=== PATIENT | male | born 1955 | race Two or more races ===

== ENCOUNTER 2018-05-03 07:19 | Day surgery (SDC) | payer OTHER ==
[~2018-05-03] VITALS: Ht 167.6 cm; Wt 79.2 kg
[~2018-05-03 07:19] MED LIST: BACTDS PO; CEPH-443 PO; IBUP-1542 PO; LIDOCAINE 2% (SDV) 5 ML INJ ONE; PROPOFOL 200 MG INJ ONE
[2018-05-03] MEDS ORDERED: FUROSEMIDE (08:27)
[2018-05-03] MEDS ORDERED: POTASSIUM (08:27)
[2018-05-03] MEDS ORDERED: TAMSULOSIN (08:27)
[2018-05-03] MEDS ORDERED: TRAZODONE (08:27)
[2018-05-03 08:28] VITALS: Ht 167.6 cm; Wt 79.2 kg
[2018-05-03] MEDS ORDERED: EPHEDrine SULFATE 50 MG/5 ML SYG IV PRN (09:00)
[2018-05-03] MEDS ORDERED: hydrALAzine 20 MG INJ IV PRN (09:00)
[2018-05-03] MEDS ORDERED: ONDANSETRON 4 MG INJ IV PRN (09:00)
[2018-05-03] MEDS ORDERED: FENTAnyl 50 MCG/ML VIAL IV PRN (09:00)
[2018-05-03] MEDS ORDERED: LABETALOL HCL 20MG INJ IV PRN (09:00)
[2018-05-03 09:21] VITALS: BP 113/61; PULSE 68; RESP 18
[2018-05-03] MEDS ORDERED: PROPOFOL 60 ML ONE (09:28)
--- NOTE | 2018-05-03 09:28 | PREAC ---
Date/Time of Note Date/Time of Note DATE: 05/03/18 TIME: 08:59 Anesthesia Eval and Record Evaluation Time Pre-Procedure Interview DATE: 05/03/18 TIME: 08:39 Age 63 Sex male NPO: 8 hrs Preoperative diagnosis SCREENING Planned procedure COLONOSCOPY Past Medical History Past Medical History: Includes Neuro: Other (DEVELOPMENTAL DELAY) Surgery & Anesthesia Issues No known issue Meds Anticoagulation: No Beta Carlos within 24 hr: No Reason Beta Carlos not given: Pt. not on B-Carlos Reported Medications [Tamsulosin] No Conflict Check 05/03/18 [Trazodone] No Conflict Check 05/03/18 [Potassium] No Conflict Check 05/03/18 [Furosemide] No Conflict Check 05/03/18 Discontinued Scripts Ibuprofen* (Motrin*) 600 Mg Tab, 600 MG PO Q6, #30 TAB Prov:ELIE KEBEDE-C 03/03/16 Sulfamethoxazole-Trimethoprim* (Bactrim* DS) 800-160 Mg Tab, 1 TAB PO BID for 7 Days, TAB Prov:ELIE KEBEDE-C 03/03/16 Cephalexin* (Keflex*) 500 Mg Capsule, 500 MG PO QID for 7 Days, CAP Prov:ELIE KEBEDE-C 03/03/16 Sulfamethoxazole-Trimethoprim* (Bactrim* DS) 800-160 Mg Tab, 1 TAB PO BID for 10 Days, TAB Prov:CLIVE FISHMAN, DIRECTOR OF MARKET ANALYSIS 01/25/16 Cephalexin* (Keflex*) 500 Mg Capsule, 500 MG PO QID for 10 Days, CAP Prov:CLIVE FISHMAN, DIRECTOR OF MARKET ANALYSIS 01/25/16 Current Medications Fentanyl (Sublimaze) 25 mcg PACU ORDER PRN IV MILD PAIN 1-3; Start 05/03/18 at 09:00; Status UNV Ondansetron HCl (Zofran Inj) 4 mg PACU ORDER PRN IV NAUSEA/VOMITING; Start 05/03/18 at 09:00; Status UNV Labetalol HCl (Labetalol) 5 mg PACU ORDER PRN IV HIGH BLOOD PRESSURE; Start 05/03/18 at 09:00; Status UNV Hydralazine HCl (Apresoline) 5 mg PACU ORDER PRN IV HIGH BLOOD PRESSURE; Start 05/03/18 at 09:00; Status UNV Ephedrine Sulfate 5 mg PACU ORDER PRN IV BLOOD PRESSURE SUPPORT; Start 05/03/18 at 09:00; Status UNV Meds reviewed: Yes Allergies Coded Allergies: No Known Allergy (Unverified , 03/03/16) Allergies Reviewed: Yes Labs/Studies Labs Reviewed: Reviewed by anesthesiologist test: N/A Pre-procedure Exam Airway: Adequate mouth opening, Adequate thyromental dist Mallampati: Mallampati II Teeth: Normal Lung: Normal Heart: Normal ASA Physical Status ASA physical status: 2 Emergency: None Planned Anesthetic General/MAC: MAC Planned Pain Management Parenteral pain med Pre-operative Attestations Prior to commencing anesthesia and surgery, the patient was re-evaluated, there was verification of: *The patient's identity *The results of appropriate recent lab work and preoperative vital signs *The above evaluation not changing prior to induction *Anesthetic plan, risk benefits, alternative and complications discussed with p atient/family; questions answered; patient/family understands, accepts and wishes to proceed. LUCY ABREU May 03, 2018 09:28
--- NOTE | 2018-05-03 09:54 | PAC ---
Date/Time of Note Date/Time of Note DATE: 05/03/18 TIME: 09:53 Post-Anesthesia Notes Post-Anesthesia Note Last documented vital signs Vital Signs Date Temp Pulse Resp B/P (MAP) Pulse Ox O2 O2 Flow FiO2 Time Delivery Rate 05/03/18 97.8 68 18 113/61 100 High Flow 0953 (78) Activity: WNL Respiratory function: WNL Cardiovascular function: WNL Mental status: Baseline Pain reasonably controlled: Yes Hydration appropriate: Yes Nausea/Vomiting absent: Yes LUCY ABREU May 03, 2018 09:54
[2018-05-03 10:20] VITALS: BP 112/68; RESP 16
== END 2018-05-03 12:13 | disposition home or self-care (01) ==
LOC: GIL 07:19
PROVIDERS: ATTEND Internal Medicine Gastroenterology
DX: Z12.11 Encounter for screening for malignant neoplasm of colon (principal); K57.30 Diverticulosis of large intestine without perforation or abscess without bleeding; N40.0 Benign prostatic hyperplasia without lower urinary tract symptoms; R62.50 Unspecified lack of expected normal physiological development in childhood
CPT/HCPCS: 45378; Z7610